=== PATIENT | female | born 1955 | race Caucasian/White ===

== ENCOUNTER → 2024-08-14 | Outpatient (CLI) | payer MEDICARE, OTHER | LOC: M PLAIMG 13:56 | PROVIDERS: ATTEND Pain Medicine Interventional Pain Medicine | DX: M54.16 Radiculopathy, lumbar region (principal); M51.369 Other intervertebral disc degeneration, lumbar region without mention of lumbar back pain or lower extremity pain; M48.061 Spinal stenosis, lumbar region without neurogenic claudication ==

== ENCOUNTER → 2025-03-13 | Outpatient (CLI) | payer MEDICARE, OTHER | LOC: M PLARAD 13:13 | PROVIDERS: ATTEND Pain Medicine Interventional Pain Medicine | DX: M47.814 Spondylosis without myelopathy or radiculopathy, thoracic region (principal) ==